=== PATIENT | female | born 1970 | race Caucasian/White ===

== ENCOUNTER 2017-09-24 03:51 | Emergency (ER) | payer SELFPAY ==
[2017-09-24 03:59] VITALS: RESP 20
[2017-09-24] MEDS ORDERED: OXYMETAZOLINE 0.05% NASL SPRAY 1 SPRAY BOTTLE NASAL STA (04:18)
--- NOTE | 2017-09-24 04:48 | ED ---
General Adult HPI - General Chief complaint: Upper Respiratory Infection Stated complaint: Sleep apnea, cold Time Seen by Provider: 09/24/17 04:09 Source: patient Mode of arrival: ambulatory Limitations: no limitations - History of Present Illness Initial comments: This patient's 47-year-old woman who comes in to be evaluated after she had an episode that woke her from sleep tonight. Patient states that she was in her usual state of health until about thursday evening when she started having some upper respiratory symptoms, including nasal congestion, rhinorrhea, mild cough. She states that she took Thursday off of work, and then was feeling better today and went back but noted that in the evening her congestion was worsening. She went to sleep and then woke up with feeling that she couldn't breathe. She had a feeling of burning in the substernal area and her heart was racing. She states that she did feel better after waking up and being upright, which she still has significant nasal congestion and cannot breathe through her nose. She states she does have previous history of sleep apnea and on a sleep study was having 200 periods of apnea a night. She underwent uvuloplasty and then the repeat sleep study's show that she had gone down to about 10 episodes per night. -: minutes(s) Consistency: other (Improved) Improves with: none Worsens with: none Associated Symptoms: chest pain, cough, shortness of breath Treatments Prior to Arrival: none - Related Data Home Medications Medication Instructions Recorded Confirmed No Known Home Medications [No 09/24/17 09/24/17 Known Home Medications] Allergies Allergy/AdvReac Type Severity Reaction Status Date / Time ciprofloxacin [From Cipro] Allergy Unknown Verified 09/24/17 03:59 Review of Systems ROS Statement: Those systems with pertinent positive or pertinent negative responses have been documented in the HPI. ROS Other: All systems not noted in ROS Statement are negative. Constitutional: Denies: fever, chills Respiratory: Reports: as per HPI, cough, dyspnea. Denies: hemoptysis Cardiovascular: Reports: as per HPI, chest pain, palpitations. Denies: orthopnea, edema, syncope Gastrointestinal: Denies: abdominal pain, vomiting, diarrhea Musculoskeletal: Denies: back pain Skin: Denies: rash Neurological: Denies: headache, weakness, numbness Psychiatric: Reports: anxiety Past Medical History Past Medical History: No Reported History History of Any Multi-Drug Resistant Organisms: None Reported Past Surgical History: Cholecystectomy, Hysterectomy, Orthopedic Surgery, Tonsillectomy Past Psychological History: ADD/ADHD Smoking Status: Current every day smoker Past Alcohol Use History: None Reported Past Drug Use History: None Reported General Exam Limitations: no limitations General appearance: alert, in no apparent distress Head exam: Present: atraumatic, normocephalic Eye exam: Present: normal appearance. Absent: scleral icterus, conjunctival injection ENT exam: Present: mucous membranes moist, TM's normal bilaterally, normal external ear exam, other (Patient has had uvuloplasty) Neck exam: Present: normal inspection, full ROM Respiratory exam: Present: normal lung sounds bilaterally. Absent: respiratory distress, wheezes, rales, rhonchi, stridor Cardiovascular Exam: Present: regular rate, normal rhythm, normal heart sounds. Absent: systolic murmur, diastolic murmur, rubs, gallop GI/Abdominal exam: Present: soft. Absent: distended, tenderness, guarding, rebound External exam: Present: normal external exam Extremities exam: Present: normal inspection, normal capillary refill. Absent: pedal edema, calf tenderness Back exam: Present: normal inspection. Absent: CVA tenderness (R), CVA tenderness (L) Neurological exam: Present: alert Skin exam: Present: warm, dry, intact, normal color. Absent: rash Course Vital Signs 09/24/17 09/24/17 03:54 05:53 Temperature 97.5 F L 98.9 F Pulse Rate 85 86 Respiratory 20 20 Rate Blood Pressure 129/78 135/62 O2 Sat by Pulse 100 99 Oximetry Medical Decision Making - Medical Decision Making The patient did have improvement following the Afrin spray and when I went to reevaluate her she was sleeping comfortably in the room. Appropriate further care and follow-up were discussed as well as return parameters. - Lab Data Lab Results 09/24/17 Range/Units 04:32 Influenza Type A RNA Not Detected (Not Detectd) Influenza Type B (PCR) Not Detected (Not Detectd) Disposition Clinical Impression: Upper respiratory infection Disposition: HOME SELF-CARE Condition: Good Instructions: Upper Respiratory Infection (ED) Referrals: None,Stated [Primary Care Provider] - 1-2 days
--- NOTE | 2017-09-24 05:40 | XR ---
EXAM: XR Chest, 2 Views CLINICAL HISTORY: Reason: Pain, cough and sore throat TECHNIQUE: Frontal and lateral views of the chest. COMPARISON: No relevant prior studies available. FINDINGS: Lungs: Unremarkable. No consolidation. Pleural space: Unremarkable. No pneumothorax. Heart: Unremarkable. No cardiomegaly. Mediastinum: Unremarkable. Bones/joints: Multilevel degenerative changes of the spine. IMPRESSION: No acute findings.
[2017-09-24 05:56] VITALS: BP 135/62; PULSE 86; TEMP 98.9
== END 2017-09-24 05:58 | disposition home or self-care (01) ==
LOC: EC 03:51
DX: J06.9 Acute upper respiratory infection, unspecified (principal); R07.9 Chest pain, unspecified; R06.02 Shortness of breath; F17.200 Nicotine dependence, unspecified, uncomplicated; Z88.1 Allergy status to other antibiotic agents
CPT/HCPCS: 71046; 87502; 99283

== ENCOUNTER 2017-10-13 20:33 | Emergency (ER) | payer OTHER ==
[2017-10-13] MEDS ORDERED: DEXAMETHASONE SOD PHOSPHATE 10 MG/ML 1 ML VIAL IV STA (21:15)
[2017-10-13] MEDS ORDERED: RX INFO: IV CONTRAST WAS GIVEN 1 EACH MISC MISCELLANE PRN (21:15)
[2017-10-13] MEDS ORDERED: KETOROLAC 30 MG/ML 1 ML VIAL IVP STA (21:15)
--- NOTE | 2017-10-13 21:21 | ED ---
ENT HPI - General Chief complaint: ENT Stated complaint: difficulty swollowing Time Seen by Provider: 10/13/17 20:47 Source: patient Mode of arrival: ambulatory Limitations: no limitations - History of Present Illness Initial comments: 47-year-old female patient presents to the emergency department today for complaints of sore throat, throat swelling, and difficulty swallowing. Patient reports that she was sick with upper respiratory symptoms starting 2 weeks ago. She states that she had cough, nasal congestion, sore throat, and cough. States that most of her other symptoms have resolved however the sore throat is still present. Patient states that it seems to be getting worse. States it is difficult for her to eat or drink. States that the pain seems to move from the left to the right side. States currently it is on the left side. States that she is tender on the outside of her neck. States she feels pressure in her bilateral ears. She denies any fevers or chills or other duration of the illness. States she has been nauseated throughout the day today. Denies any vomiting or diarrhea. Patient does have history of tonsillectomy and uvulectomy. Patient denies any recent rash, shortness breath, chest pain, abdominal pain, back pain, numbness, tingling, dizziness, weakness, hematuria, dysuria, urinary urgency, urinary frequency, headache, visual changes, or any other complaints. - Related Data Home Medications Medication Instructions Recorded Confirmed No Known Home Medications [No 09/24/17 10/13/17 Known Home Medications] Allergies Allergy/AdvReac Type Severity Reaction Status Date / Time ciprofloxacin [From Cipro] Allergy Unknown Verified 10/13/17 20:56 Review of Systems ROS Statement: Those systems with pertinent positive or pertinent negative responses have been documented in the HPI. ROS Other: All systems not noted in ROS Statement are negative. Past Medical History Past Medical History: No Reported History History of Any Multi-Drug Resistant Organisms: None Reported Past Surgical History: Cholecystectomy, Hysterectomy, Orthopedic Surgery, Tonsillectomy Past Psychological History: ADD/ADHD Smoking Status: Current every day smoker Past Alcohol Use History: None Reported Past Drug Use History: None Reported General Exam Limitations: no limitations General appearance: alert, in no apparent distress, other (This is a well- developed, well-nourished adult female patient in no acute distress. Vital signs upon presentation are temperature 98.3F, pulse 85, respirations 20, blood pressure 151/80, pulse ox 99% on room air.) Eye exam: Present: normal appearance, PERRL, EOMI. Absent: scleral icterus, conjunctival injection, periorbital swelling ENT exam: Present: normal exam, mucous membranes moist, TM's normal bilaterally. Absent: normal oropharynx (Pharyngeal erythema and swelling. Tonsils are surgically absent. Uvula is surgically absent.) Neck exam: Present: normal inspection, other (Tenderness to the left anterior cervical region.). Absent: tenderness, meningismus, lymphadenopathy Respiratory exam: Present: normal lung sounds bilaterally. Absent: respiratory distress, wheezes, rales, rhonchi, stridor Cardiovascular Exam: Present: regular rate, normal rhythm, normal heart sounds. Absent: systolic murmur, diastolic murmur, rubs, gallop, clicks GI/Abdominal exam: Present: soft, normal bowel sounds. Absent: distended, tenderness, guarding, rebound, rigid Neurological exam: Present: alert, oriented X3, CN II-XII intact Psychiatric exam: Present: normal affect, normal mood Skin exam: Present: warm, dry, intact, normal color. Absent: rash Course Vital Signs 10/13/17 10/13/17 20:43 22:43 Temperature 98.3 F 98.7 F Pulse Rate 85 72 Respiratory 20 18 Rate Blood Pressure 151/80 132/77 O2 Sat by Pulse 99 98 Oximetry Medical Decision Making - Medical Decision Making 47-year-old female patient presents to the emergency department today for evaluation of sore throat 2 weeks. Physical examination did reveal some tenderness over the left anterior cervical region. There was erythematous with some symmetrical swelling. Tonsils are surgically absent. Patient's vital signs are stable, she is afebrile. Labs reviewed and were unremarkable. Did perform CT of the soft tissues of the neck with contrast which showed mild cervical lymphadenopathy and swelling of the tonsils and adenoids indicating inflammatory process. I did discuss findings with the patient. She is having some improvement of her symptoms with administration of steroids and Toradol. She is instructed to continue taking anti-inflammatory medications. She is instructed to follow-up with her primary care physician Bridges instructed to return here immediately for any new, worsening, or concerning symptoms. She verbalizes understanding and agrees with this plan. - Lab Data Result diagrams: 10/13/17 21:38 10/13/17 21:38 Lab Results 10/13/17 10/13/17 10/13/17 Range/Units 21:38 21:38 21:38 WBC 10.0 (3.8-10.6) k/uL RBC 4.63 (3.80-5.40) m/uL Hgb 13.9 (11.4-16.0) gm/dL Hct 39.7 (34.0-46.0) % MCV 85.7 (80.0-100.0) fL MCH 30.0 (25.0-35.0) pg MCHC 35.0 (31.0-37.0) g/dL RDW 12.7 (11.5-15.5) % Plt Count 250 (150-450) k/uL Neutrophils % 51 % Lymphocytes % 41 % Monocytes % 4 % Eosinophils % 2 % Basophils % 1 % Neutrophils # 5.1 (1.3-7.7) k/uL Lymphocytes # 4.1 (1.0-4.8) k/uL Monocytes # 0.4 (0-1.0) k/uL Eosinophils # 0.2 (0-0.7) k/uL Basophils # 0.1 (0-0.2) k/uL Sodium 142 (137-145) mmol/L Potassium 3.9 (3.5-5.1) mmol/L Chloride 106 (98-107) mmol/L Carbon Dioxide 26 (22-30) mmol/L Anion Gap 10 mmol/L BUN 16 (7-17) mg/dL Creatinine 0.60 (0.52-1.04) mg/dL Est GFR (CKD-EPI)AfAm >90 (>60 ml/min/1.73 sqM) Est GFR (CKD-EPI)NonAf >90 (>60 ml/min/1.73 sqM) Glucose 84 (74-99) mg/dL Calcium 9.5 (8.4-10.2) mg/dL Total Bilirubin 0.2 (0.2-1.3) mg/dL AST 24 (14-36) U/L ALT 43 (9-52) U/L Alkaline Phosphatase 84 (38-126) U/L Total Protein 7.0 (6.3-8.2) g/dL Albumin 4.1 (3.5-5.0) g/dL Group A Strep Rapid Negative (Negative) - Radiology Data Radiology results: report reviewed, image reviewed CT of the soft tissue of the neck with contrast was performed. Report was reviewed in its entirety. Impression by Dr. Gomez shows enlargement of the tonsils, the soft palate and adenoids consistent with inflammatory process. Mild sphenoid sinusitis. No evidence of an abscess. Mild cervical adenopathy. Old granulomatous disease. Disposition Clinical Impression: Pharyngitis Disposition: HOME SELF-CARE Condition: Good Instructions: Pharyngitis (ED) Additional Instructions: Continue taking anti-inflammatory pain medication for symptom relief. Follow- up with your primary care physician if symptoms aren't improving over the next 1 -2 days. Return here immediately for any new, worsening, or concerning symptoms. Referrals: None,Stated [Primary Care Provider] - 1-2 days Time of Disposition: 22:28
[2017-10-13 21:49] LABS: Basophils # (A) 0.1 k/uL (0-0.2); Basophils % (A) 1 %; Eosinophils # (A) 0.2 k/uL (0-0.7); Eosinophils % (A) 2 %; HCT 39.7 % (34.0-46.0); HGB 13.9 gm/dL (11.4-16.0); Lymphocytes # (A) 4.1 k/uL (1.0-4.8); Lymphocytes % (A) 41 %; MCV 85.7 fL (80.0-100.0); Mean Platelet Volume 7.6; Monocytes # (A) 0.4 k/uL (0-1.0); Monocytes % (A) 4 %; Neutrophils # (A) 5.1 k/uL (1.3-7.7); Neutrophils % (A) 51 %; Platelet Count 250 k/uL (150-450); RBC 4.63 m/uL (3.80-5.40); RDW 12.7 % (11.5-15.5)
[2017-10-13 22:05] LABS: ALT 43 U/L (9-52); AST 24 U/L (14-36); Albumin 4.1 g/dL (3.5-5.0); Alkaline Phosphatase 84 U/L (38-126); Anion Gap 10 mmol/L; Blood Urea Nitrogen 16 mg/dL (7-17); Calcium 9.5 mg/dL (8.4-10.2); Carbon Dioxide 26 mmol/L (22-30); Chloride 106 mmol/L (98-107); Glucose 84 mg/dL (74-99); Potassium 3.9 mmol/L (3.5-5.1); Sodium 142 mmol/L (137-145); Total Bilirubin 0.2 mg/dL (0.2-1.3)
--- NOTE | 2017-10-13 22:21 | CT ---
EXAMINATION TYPE: CT soft tissue neck w con DATE OF EXAM: 10/13/2017 10:12 PM COMPARISON: NONE HISTORY: Throat swelling and pain. CT DLP: 604.8 mGycm Automated exposure control for dose reduction was used. CONTRAST: CT scan of the neck is performed following with IV Contrast, patient injected with 100ml mL of Isovue 300. Axial images are obtained, coronal and sagittal reformatted images are reviewed. FINDINGS: The upper lung ledbetter are clear of consolidation. There is a 1 mm calcified granuloma in the superior segment of the left lower lobe. There are densely calcified granulomata at the left pulmonary hilum. There is no evidence of aortic aneurysm or dissection at the arch. There is normal branching pattern of the great vessels on the aortic arch. Thyroid gland is symmetric. There is normal contrast opacif ication of the carotid arteries and jugular veins. Vertebral arteries are fairly symmetric. The trach ea appears normal. Epiglottis appears normal. There is no evidence of a pharyngeal mass. There is enl argement of the tonsils and deep posterior soft palate and the adenoids. There is narrowing of the po sterior nasopharyngeal airway. There is some mucosal thickening in the sphenoid sinus. I see no bony destructive process. There are spondylotic change at C5-6 with anterior and posterior spurring of the endplates. I see no focal bone destruction. There is no evidence of an abscess. Parotid glands are symmetric. Submandibular salivary glands are symmetric. There are anterior and pos terior triangle bilateral cervical lymph nodes that measure up to 1.4 cm. There is no evidence of an abscess. I see no pathologic fluid collection. IMPRESSION: There is enlargement of the tonsils, the soft palate and the adenoids consistent with in flammatory process. Mild sphenoid sinusitis. No evidence of an abscess. Mild cervical adenopathy. Old granulomatous disease.
[2017-10-13 22:43] VITALS: BP 132/77; PULSE 72; RESP 18; TEMP 98.7
== END 2017-10-13 22:43 | disposition home or self-care (01) ==
LOC: EC 20:33
DX: J02.9 Acute pharyngitis, unspecified (principal); F17.200 Nicotine dependence, unspecified, uncomplicated; Z88.1 Allergy status to other antibiotic agents
CPT/HCPCS: 99284; 96374; 96375; 36415; 80053; 85025; 87081; 87430; 70491; J1100; J1885; Q9967

== ENCOUNTER 2022-05-15 15:36 | Emergency (ER) | payer BC, OTHER ==
[2022-05-15 15:46] VITALS: TEMP 98.5
--- NOTE | 2022-05-15 17:43 | CT ---
EXAMINATION TYPE: CT brain cspine wo con DATE OF EXAM: 05/15/2022 COMPARISON: CT soft tissue neck 10/13/2017 HISTORY: Pressure in neck and ringing in ears, pain CT DLP: 1571 mGycm Automated exposure control for dose reduction was used. TECHNIQUE: CT scan of the head and cervical spine are performed without contrast. FINDINGS: There is no acute intracranial hemorrhage, mass effect, or midline shift identified. The ventricles and sulci are within normal limits in size. The globes are intact and the visualized sin uses are remarkable for inflammatory change within the sphenoid sinus. Cervical spine is visualized in its entirety from C1 through upper thoracic levels and demonstrates s atisfactory alignment without evidence of acute fracture or dislocation. Anterior cervical fusion and discectomy present at C4-C6 with intervertebral spacing devices. Spondylosis is present at C4-5 and C5-6 with posterior extension of endplate disc complexes at C5-6 and to lesser extent C4-5, foramina l encroachment due to uncovertebral joint hypertrophy and facet arthropathy present at C5-6, C6-7 on the right Prevertebral soft tissue appears within normal limits. The C1-C2 articulation is unremarka ble. IMPRESSION: 1. There is no acute fracture or dislocation evident in the cervical spine, postop changes and degene rative disc disease, foraminal encroachment as described. 2. No acute intracranial hemorrhage, mass effect, or midline shift is seen, sphenoid sinus disease.
[2022-05-15 19:07] VITALS: BP 134/91; PULSE 67; RESP 18
--- NOTE | 2022-05-15 19:23 | ED ---
Neck Injury/Pain HPI - General Chief Complaint: Neck Pain/Injury Stated Complaint: Post op-neck pressure Time Seen by Provider: 05/15/22 17:25 Mode of arrival: ambulatory Limitations: no limitations - History of Present Illness Initial Comments: 51-year-old female past history of cervical fusion presents to the emergency department with numbness and tingling in her upper extremities. Patient reports that she had fusion on November 18 by a neurosurgeon at [facility]. This was due to cervical radiculopathy. States that she takes gabapentin and Robaxin at home and ran out 9 days ago. Last night the patient began having extremely stiff neck with pressure radiating down both arms. Denies any weakness. Also admits to a pressure sensation in her neck with tinnitus in her ears. She called her neurosurgeon who recommended that she seek evaluation. Denies any fevers. No headache or visual changes. No trauma. Denies any weakness in her lower extremities. Other alleviating, precipitating or modifying factors - Related Data Previous Rx's Medication Instructions Recorded Gabapentin 300 mg PO TID 3 Days #9 cap 05/15/22 methocarbamoL [Robaxin-750] 750 mg PO Q8HR #15 tab 05/15/22 Allergies Allergy/AdvReac Type Severity Reaction Status Date / Time amoxicillin [From Augmentin] Allergy Rash/Hives Verified 05/15/22 15:47 ciprofloxacin [From Cipro] Allergy Unknown Verified 10/13/17 20:56 clavulanic acid Allergy Rash/Hives Verified 05/15/22 15:47 [From Augmentin] Penicillins Allergy Rash/Hives Verified 05/15/22 15:47 Review of Systems ROS Statement: Those systems with pertinent positive or pertinent negative responses have been documented in the HPI. ROS Other: All systems not noted in ROS Statement are negative. Past Medical History Past Medical History: No Reported History History of Any Multi-Drug Resistant Organisms: None Reported Past Surgical History: Cholecystectomy, Hysterectomy, Orthopedic Surgery, Tonsillectomy Past Psychological History: No Psychological Hx Reported, ADD/ADHD Past Alcohol Use History: None Reported Past Drug Use History: None Reported General Exam Limitations: no limitations General appearance: alert, in no apparent distress Head exam: Present: atraumatic, normocephalic, normal inspection Eye exam: Present: normal appearance, PERRL, EOMI. Absent: scleral icterus, conjunctival injection, periorbital swelling ENT exam: Present: normal exam, mucous membranes moist Neck exam: Present: normal inspection, tenderness (paraspinal. no midline tenderness. 5/5 muscle strength bilateral upper extremities. intact sensation in the bilateral upper extremities). Absent: meningismus, lymphadenopathy Respiratory exam: Present: normal lung sounds bilaterally. Absent: respiratory distress, wheezes, rales, rhonchi, stridor Cardiovascular Exam: Present: regular rate, normal rhythm, normal heart sounds. Absent: systolic murmur, diastolic murmur, rubs, gallop, clicks GI/Abdominal exam: Present: soft, normal bowel sounds. Absent: distended, tenderness, guarding, rebound, rigid Extremities exam: Present: normal inspection, full ROM, normal capillary refill. Absent: tenderness, pedal edema, joint swelling, calf tenderness Back exam: Present: normal inspection Neurological exam: Present: alert, oriented X3, CN II-XII intact Psychiatric exam: Present: normal affect, normal mood Skin exam: Present: warm, dry, intact, normal color. Absent: rash Course Vital Signs 05/15/22 05/15/22 15:43 19:04 Temperature 98.5 F Pulse Rate 76 67 Respiratory 16 18 Rate Blood Pressure 147/86 134/91 O2 Sat by Pulse 97 100 Oximetry Medical Decision Making - Medical Decision Making Upon arrival patient is placed in room 9. Thorough history and physical exam was performed. CT of the head and cervical spine is performed. CT demonstrates no acute fracture dislocation. Postop changes. Spondylosis. Posterior extension of endplate disc complexes. Foraminal encroachment. Results are discussed with the patient. Did recommend several treatment plans. Patient does not want to use NSAIDs or steroids. I will refill her prescriptions for gabapentin and Robaxin. She is given a CD with her images on them. He is to call and make an appointment with her neurosurgeon and return for any new or worsening symptoms. Patient agreeable. She is discharged home in stable condition Disposition Clinical Impression: Neck pain, Cervical radicular pain Disposition: HOME SELF-CARE Condition: Stable Instructions (If sedation given, give patient instructions): Cervical Radiculopathy (ED) Additional Instructions: Please the medications as directed. Call your neurosurgeon in the morning for further treatment. Return for any new or worsening symptoms Prescriptions: Gabapentin 300 mg PO TID 3 Days #9 cap methocarbamoL [Robaxin-750] 750 mg PO Q8HR #15 tab Is patient prescribed a controlled substance at d/c from ED?: Yes When asked, does pt state using other controlled substances?: No If prescribed controlled substance>3 days was MAPS reviewed?: Prescribed <3 Days Referrals: Twan Chavarria MD [Primary Care Provider] - 1-2 days Time of Disposition: 19:22
== END 2022-05-15 19:43 | disposition home or self-care (01) ==
LOC: EC 15:36
DX: M54.12 Radiculopathy, cervical region (principal); Z88.0 Allergy status to penicillin; Z88.1 Allergy status to other antibiotic agents
CPT/HCPCS: 70450; 72125; 99283

== ENCOUNTER → 2024-02-16 | Outpatient (CLI) | payer BC, OTHER ==
--- NOTE | 2024-02-18 09:59 | MM ---
Reason for Exam: Screening (asymptomatic). Patient History: Menarche at age 15. First Full-Term at age 17. Hysterectomy at age 42. Risk Values: Eli 5 year model risk: 0.7%. NCI Lifetime model risk: 5.8%. Tissue Density: There are scattered areas of fibroglandular density. Findings: Analyzed By CAD. There is no suspicious group of microcalcifications or new suspicious mass in either breast. Overall Assessment: Negative, BI-RAD 1 Management: Screening Mammogram of both breasts in 1 year. . Patient should continue monthly self-breast exams. A clinical breast exam by your physician is recommended on an annual basis. This exam should not preclude additional follow-up of suspicious palpable abnormalities. Note on Eli scores and lifetime risk: 1. A Eli score greater than 3% is considered moderate risk. If this is the case, consider specialist referral to assess eligibility for a risk reducing agent. 2. If overall lifetime risk for the development of breast cancer is 20% or higher, the patient may qualify for future screening with alternating mammogram and breast MRI. Electronically signed and approved by: Jimmy Manning M.D. Radiologis
== END | disposition home or self-care (01) ==
LOC: RADMAMWWP 15:41
PROVIDERS: ATTEND Internal Medicine
DX: Z12.31 Encounter for screening mammogram for malignant neoplasm of breast (principal); R92.323 Mammographic fibroglandular density, bilateral breasts
CPT/HCPCS: 77067

== ENCOUNTER 2024-03-30 14:17 | Emergency (ER) | payer BC ==
--- NOTE | 2024-03-30 15:21 | ED ---
Abdominal Pain HPI - General Chief Complaint: Abdominal Pain Stated Complaint: Abd Pain Time Seen by Provider: 03/30/24 14:47 Source: patient, RN notes reviewed Mode of arrival: ambulatory Limitations: no limitations - History of Present Illness Initial Comments: This is a 53-year-old female who presents to the emergency department for abdominal pain. Reports generalized abdominal pain for the last 2 days. Pain tends to occur intermittently. Pain does not radiate into the back. Denies any nausea or vomiting. Also denies any diarrhea or constipation. She has had similar pain intermittently over the last month. She had been started on medication for bladder spasms a month ago to see if that may help with her symptoms. She does note that pain seems to be worse after urinating. MD Complaint: abdominal pain - Related Data Previous Rx's Medication Instructions Recorded Gabapentin 300 mg PO TID 3 Days #9 cap 05/15/22 methocarbamoL [Robaxin-750] 750 mg PO Q8HR #15 tab 05/15/22 Ketorolac [Toradol] 10 mg PO Q6HR PRN #15 tab 03/30/24 Ondansetron Odt [Zofran Odt] 4 mg PO Q8HR PRN #15 tab 03/30/24 Allergies Allergy/AdvReac Type Severity Reaction Status Date / Time amoxicillin [From Augmentin] Allergy Rash/Hives Verified 03/30/24 14:39 ciprofloxacin [From Cipro] Allergy Unknown Verified 03/30/24 14:39 clavulanic acid Allergy Rash/Hives Verified 03/30/24 14:39 [From Augmentin] Penicillins Allergy Rash/Hives Verified 03/30/24 14:39 Review of Systems ROS Statement: Those systems with pertinent positive or pertinent negative responses have been documented in the HPI. ROS Other: All systems not noted in ROS Statement are negative. Past Medical History Past Medical History: No Reported History History of Any Multi-Drug Resistant Organisms: None Reported Past Surgical History: Cholecystectomy, Hysterectomy, Orthopedic Surgery, Tonsillectomy Past Psychological History: No Psychological Hx Reported, ADD/ADHD Smoking Status: Never smoker Past Alcohol Use History: None Reported Past Drug Use History: None Reported General Exam Limitations: no limitations General appearance: alert, in no apparent distress Head exam: Present: atraumatic, normocephalic, normal inspection Respiratory exam: Present: normal lung sounds bilaterally. Absent: respiratory distress, wheezes, rales, rhonchi, stridor Cardiovascular Exam: Present: regular rate, normal rhythm, normal heart sounds. Absent: systolic murmur, diastolic murmur, rubs, gallop, clicks GI/Abdominal exam: Present: soft, tenderness (Diffuse), normal bowel sounds. Absent: distended Neurological exam: Present: alert, oriented X3, CN II-XII intact Psychiatric exam: Present: normal affect, normal mood Skin exam: Present: warm, dry, intact, normal color. Absent: rash Course Vital Signs 03/30/24 03/30/24 03/30/24 14:37 15:35 17:00 Temperature 98.6 F 98.2 F 97.9 F Pulse Rate 76 70 65 Respiratory 18 16 16 Rate Blood Pressure 113/67 98/66 92/56 O2 Sat by Pulse 97 97 100 Oximetry 03/30/24 03/30/24 03/30/24 17:51 18:05 19:30 Temperature Pulse Rate 60 61 Respiratory 18 18 Rate Blood Pressure 90/59 94/58 99/64 O2 Sat by Pulse 100 100 Oximetry Medical Decision Making - Medical Decision Making This is a 53-year-old female who presents to the emergency department for abdominal pain. Was pt. sent in by a medical professional or institution? @ -No Did you speak to anyone other than the patient for history? @ -No Did you review nursing and triage notes? @ -Yes, and I agree, it is accurate with regards to the patient's symptoms. Were old charts reviewed? @ -No Differential Diagnosis? @ -Differential Abdominal Pain Women: Appendicitis, Cholecystitis, diverticulosis, ischemic bowel, pancreatitis, hepatitis, UTI, gastroenteritis, AAA, incarcerated hernia, bowel obstruction, constipation, inflammatory bowel, hepatitis, peptic ulcer disease, splenic infarction, perforated viscus, vulvitis, ovarian torsion, PID, kidney stone, placenta abruption, this is not meant to be an all-inclusive list EKG interpreted by me (3pts min.)? @ -Not obtained X-rays interpreted by me (1pt min.)? @ -Not obtained CT interpreted by me (1pt min.)? @ -CT scan of the abdomen and pelvis obtained. My interpretation identifies no bowel wall thickening or free air. U/S interpreted by me (1pt. min.)? @ -Not obtained What testing was considered but not performed? (CT, X-rays, U/S, labs)? Why? @ -None What meds were considered but not given? Why? @ -None Did you discuss the management of the patient with other professionals? @ -No Did you reconcile home meds? @ -No Was smoking cessation discussed for >3mins.? @ -I discussed smoking cessation for greater than 3 minutes. The risk of smoking were discussed with the patient including but not limited to risks of cancer, stroke, coronary artery disease and COPD. Also discussed with patient were multiple methods of quitting smoking. Lastly we discussed the financial cost of smoking. Was critical care preformed (if so, how long)? @ -No Were there social determinants of health that impacted care today? How? (Homelessness, low income, unemployed, alcoholism, drug addiction, transportation, low edu. Level, literacy, decrease access to med. care, detention, rehab)? @ -No Was there de-escalation of care discussed even if they declined? (Discuss DNR or withdrawal of care, Hospice)? @ -No What co-morbidities impacted this encounter? (DM, HTN, Smoking, COPD, CAD, Cancer, CVA, Hep., AIDS, mental health diagnosis, sleep apnea, morbid obesity)? @ -Smoking Was patient admitted / discharged? @ -Discharged. Lab work unremarkable. Urinalysis negative for signs of in fection. CT scan of the abdomen and pelvis also reveals no acute process. Patient did develop softer blood pressures in the emergency department, ranging in the 90s systolically. Does not believe this is typical for her, however she was not experiencing symptoms regarding the low blood pressure. She was given 2 L of IV fluids. Advised monitoring her blood pressure at home and keeping a log of these values. Toradol and Zofran prescribed for symptomatic management. Advised following up with urology given that symptoms seem to have some correlation with urination. Patient discharged home in stable condition. Case discussed with ED attending Dr. Sheldon. Return precautions reviewed in depth, the patient is instructed to return to the emergency department with any new, worsening, or concerning symptoms. Patient verbalized understanding. Undiagnosed new problem with uncertain prognosis? @ -None Drug Therapy requiring intensive monitoring for toxicity (Heparin, Nitro, Insulin, Cardizem)? @ -None Were any procedures done? @ -None Diagnosis/symptom? @ -Abdominal pain Acute, or Chronic, or Acute on Chronic? @ -Acute Uncomplicated (without systemic symptoms) or Complicated (systemic symptoms)? @ -Uncomplicated Side effects of treatment? @ -None Exacerbation, Progression, or Severe Exacerbation] @ -Not applicable Poses a threat to life or bodily function? @ -No - Lab Data Result diagrams: 03/30/24 15:20 03/30/24 15:20 Lab Results 03/30/24 03/30/24 03/30/24 Range/Units 15:20 15:20 15:20 WBC 8.4 (3.8-10.6) k/uL RBC 4.97 (3.80-5.40) m/uL Hgb 14.8 (11.4-16.0) gm/dL Hct 43.6 (34.0-46.0) % MCV 87.9 (80.0-100.0) fL MCH 29.7 (25.0-35.0) pg MCHC 33.8 (31.0-37.0) g/dL RDW 12.7 (11.5-15.5) % Plt Count 253 (150-450) k/uL MPV 8.5 Neutrophils % 55 % Lymphocytes % 35 % Monocytes % 6 % Eosinophils % 2 % Basophils % 1 % Neutrophils # 4.6 (1.3-7.7) k/uL Lymphocytes # 2.9 (1.0-4.8) k/uL Monocytes # 0.5 (0-1.0) k/uL Eosinophils # 0.2 (0-0.7) k/uL Basophils # 0.1 (0-0.2) k/uL Sodium 141 (137-145) mmol/L Potassium 4.1 (3.5-5.1) mmol/L Chloride 109 H (98-107) mmol/L Carbon Dioxide 25 (22-30) mmol/L Anion Gap 7 mmol/L BUN 13 (7-17) mg/dL Creatinine 0.93 (0.52-1.04) mg/dL Est GFR (CKD-EPI)AfAm 82 (>60 ml/min/1.73 sqM) Est GFR (CKD-EPI)NonAf 71 (>60 ml/min/1.73 sqM) Glucose 114 H (74-99) mg/dL Plasma Lactic Acid Samuel (0.7-2.0) mmol/L Calcium 9.3 (8.4-10.2) mg/dL Total Bilirubin 0.3 (0.2-1.3) mg/dL AST 26 (14-36) U/L ALT 41 H (4-34) U/L Alkaline Phosphatase 74 (38-126) U/L Total Protein 7.0 (6.3-8.2) g/dL Albumin 4.3 (3.5-5.0) g/dL Amylase 64 (30-110) U/L Lipase 152 (23-300) U/L Urine Color Yellow Urine Appearance Clear (Clear) Urine pH 6.0 (5.0-8.0) Ur Specific [place] 1.022 (1.001-1.035) Urine Protein Negative (Negative) Urine Glucose (UA) Negative (Negative) Urine Ketones Negative (Negative) Urine Blood Negative (Negative) Urine Nitrite Negative (Negative) Urine Bilirubin Negative (Negative) Urine Urobilinogen <2.0 (<2.0) mg/dL Ur Leukocyte Esterase Negative (Negative) 03/30/24 Range/Units 15:20 WBC (3.8-10.6) k/uL RBC (3.80-5.40) m/uL Hgb (11.4-16.0) gm/dL Hct (34.0-46.0) % MCV (80.0-100.0) fL MCH (25.0-35.0) pg MCHC (31.0-37.0) g/dL RDW (11.5-15.5) % Plt Count (150-450) k/uL MPV Neutrophils % % Lymphocytes % % Monocytes % % Eosinophils % % Basophils % % Neutrophils # (1.3-7.7) k/uL Lymphocytes # (1.0-4.8) k/uL Monocytes # (0-1.0) k/uL Eosinophils # (0-0.7) k/uL Basophils # (0-0.2) k/uL Sodium (137-145) mmol/L Potassium (3.5-5.1) mmol/L Chloride (98-107) mmol/L Carbon Dioxide (22-30) mmol/L Anion Gap mmol/L BUN (7-17) mg/dL Creatinine (0.52-1.04) mg/dL Est GFR (CKD-EPI)AfAm (>60 ml/min/1.73 sqM) Est GFR (CKD-EPI)NonAf (>60 ml/min/1.73 sqM) Glucose (74-99) mg/dL Plasma Lactic Acid Samuel 1.3 (0.7-2.0) mmol/L Calcium (8.4-10.2) mg/dL Total Bilirubin (0.2-1.3) mg/dL AST (14-36) U/L ALT (4-34) U/L Alkaline Phosphatase (38-126) U/L Total Protein (6.3-8.2) g/dL Albumin (3.5-5.0) g/dL Amylase (30-110) U/L Lipase (23-300) U/L Urine Color Urine Appearance (Clear) Urine pH (5.0-8.0) Ur Specific [place] (1.001-1.035) Urine Protein (Negative) Urine Glucose (UA) (Negative) Urine Ketones (Negative) Urine Blood (Negative) Urine Nitrite (Negative) Urine Bilirubin (Negative) Urine Urobilinogen (<2.0) mg/dL Ur Leukocyte Esterase (Negative) - Radiology Data Radiology results: report reviewed, image reviewed Disposition Clinical Impression: Abdominal pain, Nicotine dependence Disposition: HOME SELF-CARE Additional Instructions: Return to the emergency department with any new, worsening, or concerning symptoms. Take the Toradol with Tylenol as needed for pain relief. If you choose to take the Toradol, do not take any other anti-inflammatories such as ibuprofen, take one or the other. You can take the Zofran up to every 8 hours as needed for nausea and vomiting. Contact the urologist listed below for a follow-up appointment. Prescriptions: Ketorolac [Toradol] 10 mg PO Q6HR PRN #15 tab PRN Reason: Pain Ondansetron Odt [Zofran Odt] 4 mg PO Q8HR PRN #15 tab PRN Reason: Nausea And Vomiting Is patient prescribed a controlled substance at d/c from ED?: No Referrals: Twan Chavarria MD [Primary Care Provider] - 1-2 days Valdez Herring MD [STAFF PHYSICIAN] - 1-2 days Time of Disposition: 18:34
[2024-03-30 15:45] LABS: Appearance,Urine Clear (Clear); Bilirubin,Urine Negative (Negative); Blood,Urine Negative (Negative); Color,Urine Yellow; Glucose,Urine (UA) Negative (Negative); Ketones,Urine Negative (Negative); Leukocyte Esterase,Urine Negative (Negative); Nitrite,Urine Negative (Negative); Protein,Urine Negative (Negative); Specific Gravity,Urine 1.022 (1.001-1.035); Urobilinogen,Urine <2.0 mg/dL (<2.0)
[2024-03-30] MEDS: SODIUM CHLORIDE 0.9% 1,000 ML IV STA ×2 (15:49→18:14)
[2024-03-30 15:53] LABS: Basophils # (A) 0.1 k/uL (0-0.2); Basophils % (A) 1 %; Eosinophils # (A) 0.2 k/uL (0-0.7); Eosinophils % (A) 2 %; HCT 43.6 % (34.0-46.0); HGB 14.8 gm/dL (11.4-16.0); Lymphocytes # (A) 2.9 k/uL (1.0-4.8); Lymphocytes % (A) 35 %; MCH 29.7 pg (25.0-35.0); MCHC 33.8 g/dL (31.0-37.0); MCV 87.9 fL (80.0-100.0); Mean Platelet Volume 8.5; Monocytes # (A) 0.5 k/uL (0-1.0); Monocytes % (A) 6 %; Neutrophils # (A) 4.6 k/uL (1.3-7.7); Neutrophils % (A) 55 %; Platelet Count 253 k/uL (150-450); RBC 4.97 m/uL (3.80-5.40); RDW 12.7 % (11.5-15.5); WBC 8.4 k/uL (3.8-10.6)
[2024-03-30 16:02] LABS: ALT 41 U/L (4-34); AST 26 U/L (14-36); African American GFR (CKD) 82 (>60 ml/min/1.73 sqM); Albumin 4.3 g/dL (3.5-5.0); Alkaline Phosphatase 74 U/L (38-126); Amylase 64 U/L (30-110); Anion Gap 7 mmol/L; Blood Urea Nitrogen 13 mg/dL (7-17); Calcium 9.3 mg/dL (8.4-10.2); Carbon Dioxide 25 mmol/L (22-30); Chloride 109 mmol/L (98-107); Glucose 114 mg/dL (74-99); Lipase 152 U/L (23-300); Non-African American GFR(CKD) 71 (>60 ml/min/1.73 sqM); Potassium 4.1 mmol/L (3.5-5.1); Sodium 141 mmol/L (137-145); Total Bilirubin 0.3 mg/dL (0.2-1.3)
--- NOTE | 2024-03-30 17:07 | CT ---
EXAMINATION TYPE: CT abdomen pelvis w con DATE OF EXAM: 03/30/2024 COMPARISON: None INDICATION: LOW ABD PAIN DLP: 857.1 mGycm, Automated exposure control for dose reduction was used. CONTRAST: 100 mL of Isovue 300. Study performed without Oral Contrast TECHNIQUE: Axial images were obtained from above the diaphragm to the pubic rami in the axial plane a t 5 mm thick sections. Reconstructed images are reviewed on the computer in the coronal plane. FINDINGS: Limited CT sections are obtained the lung bases. The lung bases are clear. CT ABDOMEN: Liver: Normal Spleen: Splenic granulomata within the spleen Pancreas: Normal Adrenal glands: The adrenal glands are normal. Gallbladder: Surgically absent Kidneys: No masses are evident. No hydronephrosis is present. No cysts are present. Aorta: Vascular calcification is within the aorta. Inferior vena cava: Normal. CT PELVIS: Loops of bowel within the abdomen and pelvis are normal. Study is without oral contrast limiting follow-up evaluation. No suspicious dilated loops of bowel are evident. No suspicious fluid filled l oops of bowel are evident Appendix: Normal as visualized. Urinary bladder: Normal. Genitourinary structures: Uterus and ovaries are not identified Osseous structures: No suspicious lytic or sclerotic lesions. Generative disc changes with loss of di sc right and vacuum disc phenomenon present L5-S1 IMPRESSION: 1. No suspicious acute radiologic abnormality.
[2024-03-30 17:21] VITALS: TEMP 97.9
[2024-03-30] MEDS: KETOROLAC 15 MG/ML 1 ML VIAL IVP STA (17:33)
[2024-03-30 17:52] VITALS: RESP 18
[2024-03-30 19:31] VITALS: BP 99/64; PULSE 61
[2024-03-30] MEDS: traMADol 50 MG STARTER PACK 3 TAB BTL PO STA (19:43)
== END 2024-03-30 19:50 | disposition home or self-care (01) ==
LOC: EC 14:17
DX: R10.9 Unspecified abdominal pain (principal); Z88.0 Allergy status to penicillin; Z88.1 Allergy status to other antibiotic agents; Z88.8 Allergy status to other drugs, medicaments and biological substances; F17.200 Nicotine dependence, unspecified, uncomplicated
CPT/HCPCS: 36415; 80053; 82150; 83605; 83690; 85025; 81003; 74177; 99284; 96374; 96361 ×2; 99406; J1885; Q9967